=== PATIENT | male | born 1980 | race Caucasian/White ===

== ENCOUNTER → 2016-09-01 | Outpatient (CLI) | payer OTHER ==
--- NOTE | 2016-09-01 09:30 | US ---
Sonography of the Left Popliteal Fossa and Posterior Lateral Knee Clinical History: 36-year-old male who was rock climbing and felt a "popping sensation" one week ago, without significant pain. Rule out Negrete cyst. ICD-10 Diagnostic Code: M71.22. Technique: A linear 9 MHz transducer was used to sonographically evaluate the popliteal fossa, as wel l as along the posterolateral left knee near the area of palpable concern. Comparison Study: None. Findings: There is no evidence of a Negrete cyst or other localized fluid collection. There is no hemat edvin or soft tissue nodule observed. If there is further clinical concern regarding the patient's symp toms, MR imaging could be considered. Impression: Negative targeted sonography.
== END ==
LOC: BRMIMAGING 08:47
PROVIDERS: ATTEND Internal Medicine
DX: Z03.89 Encounter for observation for other suspected diseases and conditions ruled out (principal)
CPT/HCPCS: 76882-PO